=== PATIENT | female | born 1945 | race Caucasian/White ===

== ENCOUNTER → 2017-03-03 | Day surgery (SDC) | payer MEDICARE, OTHER ==
[~2017-03-03] MED LIST: ASPI81TA11 PO; BELLADONNA ALKALOIDS/OPIUM 60 MG SUPP RECTAL ONE; GENTAMICIN SULFATE 80 MG/2 ML VIAL ONE; LACTATED RINGER'S 1000 ML INJ 1,000 ML ONE; LIDOCAINE HCL 2% JELLY 5 ML SYRINGE ONE; LIVA1TAB PO; METO25 PO; MIDAZOLAM HCL 2 MG/2 ML VIAL ONE; OMEP10CA37 PO; ONDANSETRON HCL 4 MG/2 ML VIAL IV PUSH ONE; PROPOFOL 200 MG/20 ML AMP IV ONE; SODIUM CHLORIDE 0.9% INJ 100 ML IV ONE; WELLTAB39 PO
--- NOTE | 2017-03-03 15:32 | TN ---
cc: PERICO CONNELLY M.D. DATE OF SURGERY: 03/03/2017 PREOPERATIVE DIAGNOSIS Bladder tumors (ICD-10 code C67.8). POSTOPERATIVE DIAGNOSIS Bladder tumors (ICD-10 code C67.8). PROCEDURE Transurethral resection of bladder tumors (CPT code 19860). INDICATION Ms. Page is a 71-year-old woman who recently was evaluated for a bladder mass that was found on imaging. Local cystoscopy confirmed an approximately 3 cm mass in the right lateral wall of the bladder. She presents now for definitive resection. FINDINGS Normal urethra. Ureteral orifices normal size, shape and position, effluxing clear urine. The one on the right is adjacent to but not involved with the tumor that is located in the right lateral wall. There is a very large approximately 3 cm tumor in the right lateral wall which appears to have a definitive stalk. There are two satellite tumors, one just adjacent to it in the posterolateral wall and then one directly posterior that is clearly separate from it. These two satellite tumors are sessile in nature and are approximately 5-7 mm in diameter. The remainder of the bladder is unremarkable. There are no additional concerning lesions. There is no significant trabeculation, diverticula, no cellules or calcifications. DETAILS OF PROCEDURE The procedure as well as risks and benefits were explained to the patient. Informed consent was obtained. The patient was taken to the major operative theatre where she was placed in supine position. The patient was identified as well as the operative site. A universal timeout was performed in the standard fashion. At this time general anesthetic and prophylactic intravenous antibiotics consisting of gentamicin 80 mg was administered. After adequate anesthetic she was placed in the low dorsal lithotomy position, prepped and draped in the usual sterile fashion. At this time a 22.5 Angolan cystoscope with a 30 degree lens was inserted into the urethra. The 30 degree lens was exchanged for the 70 degree lens. The entire bladder was systematically surveyed with the above findings and photo documentation was obtained. At this time a decision was made to perform transurethral resection of the tumors using the Gyrus system with normal saline. Thus the cystoscope was removed and an Rosario resectoscope with an obturator was placed into the bladder. The obturator was removed and a right angle bladder loop was placed. Using normal saline and the Gyrus system transurethral resection of the tumor was performed in standard fashion including the two satellite lesions. The resection was carried deep through the muscle near the stalk of the tumor. There was some evidence of fat visualized but no obvious perforation, and decision was made to leave the Ochoa catheter for a week due to the deep resection. An [employer] evacuator was then used to evacuate the specimens and these were sent for final pathological evaluation. Care was taken not to fulgurate near the ureteral orifice on the right which was in close proximity to the resected tumor and the entire base of the tumor as well as two satellite lesions were fulgurated along with a small margin of normal tissue. At the end of the case clear urine was seen effluxing from the right ureteral orifice and there was very good hemostasis. At this time the resectoscope was removed and then a lidocaine Urojet was inserted into the urethra and an 18-Angolan Ochoa catheter with 10 cc of sterile water inflated to the balloon and placed to straight drain. A belladonna and opioid suppository was also given per rectum. The patient was placed back in the supine position, emerged from anesthetic without difficulty and transferred to the recovery room in stable condition to be discharged home when criteria is met. There were no obvious complications from the procedure. MD ALISA Reyes/KITTY /2:21 PM /3:09 PM
== END | disposition home or self-care (01) ==
LOC: ESDC 09:41
PROVIDERS: ATTEND Urology
DX: C67.8 Malignant neoplasm of overlapping sites of bladder (principal)
CPT/HCPCS: 00912; 52235; 88307; J1580; J2250; J2405; J3010; J7120